=== PATIENT | female | born 1995 | race Caucasian/White ===

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

== ENCOUNTER 2018-03-10 13:29 | Emergency (ER) | payer SELFPAY ==
[~2018-03-10] VITALS: Ht 177.8 cm; Wt 127.3 kg
[~2018-03-10 13:29] MED LIST changes: +GUAIFEN/CODEIN120 ML PO
[2018-03-10 14:18] LABS: EOS # 0.1 (0.04-0.40); EOS % 0.8 % (0.1-4.0); HEMATOCRIT 43.8 % (35.0-45.0); HEMOGLOBIN 14.3 g/dL (12.0-15.0); LYMPH# 2.9 (1.20-3.40); MEAN CELL VOLUME 89 fl (78-95); MEAN CORPUSCULAR HEMOGLOBIN 29 pg (26-32); MEAN CORPUSCULAR HGB CONC 33 g/dL (33-37); MEAN PLATELET VOLUME 11.6 fl (7.4-10.4); MONO # 0.7 (0.10-0.60); NEU # 4.8 (1.40-6.50); PLATELET COUNT 232 K/mm3 (130-400); RED BLOOD COUNT 4.93 M/mm3 (4.10-5.30); RED CELL DISTRIBUTION WIDTH 12.9 % (11.5-14.5); WHITE BLOOD COUNT 8.5 K/mm3 (4.8-10.8)
[2018-03-10 14:30] LABS: ALBUMIN 4.4 g/dL (3.5-5.0); CALCIUM 9.1 mg/dL (8.4-10.2); POTASSIUM 3.8 mmol/L (3.6-5.0); TOTAL BILIRUBIN 0.2 mg/dL (0.2-1.3); TOTAL PROTEIN 7.5 g/dL (6.3-8.2)
[2018-03-10 14:31] LABS: URINE APPEARANCE HAZY; URINE BILIRUBIN NEGATIVE (NEGATIVE); URINE BLOOD NEGATIVE (NEGATIVE); URINE COLOR YELLOW; URINE GLUCOSE NEGATIVE (NEGATIVE); URINE KETONE NEGATIVE (NEGATIVE); URINE LEUKOCYTE ESTERASE NEGATIVE (NEGATIVE); URINE NITRATE NEGATIVE (NEGATIVE); URINE PROTEIN(semi-quant) NEGATIVE (NEGATIVE); URINE UROBILINOGEN NORMAL (NORMAL)
[2018-03-10] MEDS ORDERED: TRAMADOL 50 MG TAB PO (15:10)
[2018-03-10 15:21] VITALS: BP 125/85
== END 2018-03-10 15:20 | disposition home or self-care (01) ==
LOC: ED 13:29
PROVIDERS: Family Medicine
DX: R10.11 Right upper quadrant pain (principal); R35.8 Other polyuria; N94.6 Dysmenorrhea, unspecified; R11.2 Nausea with vomiting, unspecified; M54.89 Other dorsalgia

== ENCOUNTER → 2019-11-15 | Outpatient (CLI) | payer BC ==
[~2019-11-15] MED LIST changes: +TRAMADOL 50 MG TAB PO
== END ==
LOC: LAB 15:10
DX: R05 Cough (principal); R50.9 Fever, unspecified; M54.5 Low back pain; R06.02 Shortness of breath; Z20.828 Contact with and (suspected) exposure to other viral communicable diseases

== ENCOUNTER 2020-10-27 02:03 | Emergency (ER) | payer BC ==
[2020-10-27 03:26] LABS: HEMATOCRIT 40.4 % (37.0-47.0); MEAN CELL VOLUME 89 fl (78-100); MEAN CORPUSCULAR HEMOGLOBIN 29 pg (27-31); MEAN CORPUSCULAR HGB CONC 32 g/dL (33-37); PLATELET COUNT 229 K/mm3 (130-400); RED BLOOD COUNT 4.53 M/mm3 (4.10-5.30); WHITE BLOOD COUNT 5.2 K/mm3 (4.8-10.8)
[2020-10-27 03:33] LABS: ALBUMIN 3.7 g/dL (3.5-5.0); POTASSIUM 3.8 mmol/L (3.5-5.1)
[2020-10-27 03:34] LABS: CALCIUM 8.8 mg/dL (8.3-10.5)
[2020-10-27 03:36] LABS: TOTAL PROTEIN 6.3 g/dL (6.4-8.3)
[2020-10-27 03:37] LABS: TOTAL BILIRUBIN 0.3 mg/dL (0.2-1.2)
[2020-10-27 03:44] LABS: LYMPHOCYTE 43 % (20-51); NEUTROPHILS 41 % (42-75)
[2020-10-27 03:45] LABS: MONOCYTE 13 % (3-10)
[2020-10-27 06:09] LABS: URINE APPEARANCE CLEAR; URINE BILIRUBIN NEGATIVE (NEGATIVE); URINE BLOOD NEGATIVE (NEGATIVE); URINE COLOR YELLOW; URINE GLUCOSE NEGATIVE (NEGATIVE); URINE KETONE NEGATIVE (NEGATIVE); URINE LEUKOCYTE ESTERASE NEGATIVE (NEGATIVE); URINE MUCUS PRESENT (NOT PRESENT); URINE NITRATE NEGATIVE (NEGATIVE); URINE PROTEIN(semi-quant) NEGATIVE (NEGATIVE); URINE UROBILINOGEN NORMAL (NORMAL); URINE WBC 0-1 /hpf (0-3)
[2020-10-27 07:31] VITALS: BP 137/73
== END 2020-10-27 07:36 | disposition home or self-care (01) ==
LOC: ED 02:03
PROVIDERS: Nurse Practitioner Family
DX: S09.90XA Unspecified injury of head, initial encounter (principal); S00.12XA Contusion of left eyelid and periocular area, initial encounter; M25.512 Pain in left shoulder; M25.571 Pain in right ankle and joints of right foot; F17.210 Nicotine dependence, cigarettes, uncomplicated; Y04.8XXA Assault by other bodily force, initial encounter
CPT/HCPCS: J1885; J7120